=== PATIENT | female | born 1950 ===

== ENCOUNTER → 2025-03-22 14:35 | Outpatient (ROUT) | payer SELFPAY ==
[2025-03-22 14:56] LABS: Appearance Urine UA CLOUDY; Bilirubin Urine UA NEGATIVE (NEGATIVE); Color Urine UA YELLOW; Glucose Urine UA 2+ g/dL (Negative); Ketones Urine UA NEGATIVE (NEGATIVE); Leukocyte Esterase Urine UA 2+ (NEGATIVE); Nitrite Urine UA POSITIVE (Negative); Occult Blood Urine UA 3+ (Negative); Protein Urine UA 2+ (Negative); Specific Gravity Urine UA 1.020 (1.000-1.035); Urobilinogen Urine UA 1.0 E.U./dL (0.2)
[2025-03-22 15:00] LABS: pH Urine UA 5.5 (4.5-8.0)
== END ==
LOC: LAB 14:36
PROVIDERS: Visit Provider Registered Nurse
DX: N31.2 Flaccid neuropathic bladder, not elsewhere classified (principal)
CPT/HCPCS: 81003; 81015; 87077; 87086

== ENCOUNTER → 2025-05-21 14:54 | Outpatient (ROUT) | payer SELFPAY ==
[2025-05-21 15:22] LABS: Color Urine UA Yellow
[2025-05-21 15:23] LABS: Appearance Urine UA Turbid
[2025-05-21 15:24] LABS: Bilirubin Urine UA TRACE (NEGATIVE); Glucose Urine UA 1.00 g/dL (Negative); Ketones Urine UA TRACE (NEGATIVE); Specific Gravity Urine UA 1.020 (1.000-1.035)
[2025-05-21 15:25] LABS: Occult Blood Urine UA 4+ (Negative); Protein Urine UA 2+ (Negative); pH Urine UA 6.0 (4.5-8.0)
[2025-05-21 15:26] LABS: Leukocyte Esterase Urine UA 4+ (NEGATIVE); Nitrite Urine UA POSITIVE (Negative); Urobilinogen Urine UA 0.2 E.U./dL (0.2)
[2025-05-21 15:28] LABS: Culture Indicated Urine Specimen Cultured
[2025-05-21 17:57] LABS: Ictotest Urine Negative (Negative)
== END ==
LOC: LAB 14:55
PROVIDERS: Visit Provider Registered Nurse
DX: N39.0 Urinary tract infection, site not specified (principal); R30.0 Dysuria
CPT/HCPCS: 81001; 87077; 87086

== ENCOUNTER → 2025-06-05 14:00 | Outpatient (ROUT) | payer SELFPAY ==
[2025-06-05 14:08] LABS: Appearance Urine UA CLEAR; Bilirubin Urine UA NEGATIVE (NEGATIVE); Color Urine UA YELLOW; Glucose Urine UA 3+ g/dL (Negative); Ketones Urine UA NEGATIVE (NEGATIVE); Leukocyte Esterase Urine UA 1+ (NEGATIVE); Nitrite Urine UA NEGATIVE (Negative); Occult Blood Urine UA TRACE-INTACT (Negative); Protein Urine UA NEGATIVE (Negative); Specific Gravity Urine UA 1.010 (1.000-1.035); Urobilinogen Urine UA 0.2 E.U./dL (0.2)
[2025-06-05 14:09] LABS: pH Urine UA 6.5 (4.5-8.0)
[2025-06-05 14:16] LABS: Culture Indicated Urine Specimen Cultured
== END ==
PROVIDERS: Visit Provider Registered Nurse
DX: N39.0 Urinary tract infection, site not specified (principal)
CPT/HCPCS: 81001; 87077; 87086; 87186

== ENCOUNTER → 2025-07-05 13:26 | Outpatient (ROUT) | payer SELFPAY ==
[2025-07-05 13:39] LABS: Appearance Urine UA CLOUDY; Bilirubin Urine UA NEGATIVE (NEGATIVE); Color Urine UA YELLOW; Glucose Urine UA NEGATIVE (Negative); Ketones Urine UA NEGATIVE (NEGATIVE); Leukocyte Esterase Urine UA 2+ (NEGATIVE); Nitrite Urine UA POSITIVE (Negative); Occult Blood Urine UA 3+ (Negative); Protein Urine UA 1+ (Negative); Specific Gravity Urine UA 1.020 (1.000-1.035); Urobilinogen Urine UA 0.2 E.U./dL (0.2)
[2025-07-05 13:40] LABS: pH Urine UA 6.0 (4.5-8.0)
[2025-07-05 13:44] LABS: Culture Indicated Urine Specimen Cultured
== END ==
PROVIDERS: Visit Provider Registered Nurse
DX: N39.0 Urinary tract infection, site not specified (principal)
CPT/HCPCS: 81001; 87077; 87086; 87186

== ENCOUNTER → 2025-08-07 22:23 | Outpatient (ROUT) | payer MEDICARE, SELFPAY ==
[2025-08-07 22:29] LABS: Appearance Urine UA CLEAR; Bilirubin Urine UA NEGATIVE (NEGATIVE); Color Urine UA YELLOW; Glucose Urine UA NEGATIVE (Negative); Ketones Urine UA TRACE (NEGATIVE); Leukocyte Esterase Urine UA 1+ (NEGATIVE); Nitrite Urine UA NEGATIVE (Negative); Occult Blood Urine UA NEGATIVE (Negative); Protein Urine UA TRACE (Negative); Specific Gravity Urine UA 1.020 (1.000-1.035); Urobilinogen Urine UA 0.2 E.U./dL (0.2)
[2025-08-07 22:30] LABS: pH Urine UA 5.5 (4.5-8.0)
[2025-08-07 22:42] LABS: Culture Indicated Urine Specimen Cultured
== END ==
PROVIDERS: Visit Provider Registered Nurse
DX: N39.0 Urinary tract infection, site not specified (principal)
CPT/HCPCS: 81001; 87086